=== PATIENT | female | born 1980 | race Caucasian/White ===

== ENCOUNTER 2020-12-19 15:43 | Emergency (ER) | payer BC ==
[~2020-12-19] VITALS: Ht 160 cm; Wt 85.9 kg
[2020-12-19 15:45] VITALS: BP 115/75
[2020-12-19] MEDS ORDERED: VALA100031 PO (15:50)
[2020-12-19] MEDS ORDERED: PENI500T2 PO (15:50)
== END 2020-12-19 16:32 | disposition home or self-care (01) ==
LOC: ER 15:44
DX: K02.9 Dental caries, unspecified (principal); B00.89 Other herpesviral infection; K08.89 Other specified disorders of teeth and supporting structures; Z88.5 Allergy status to narcotic agent; Z79.2 Long term (current) use of antibiotics
CPT/HCPCS: 99283

== ENCOUNTER 2022-07-31 11:47 | Emergency (ER) | payer BC, MEDICAID ==
[~2022-07-31] VITALS: Ht 157.5 cm; Wt 92.3 kg
[~2022-07-31 11:47] MED LIST: VALA100031 PO
[2022-07-31 12:21] VITALS: BP 123/83
--- NOTE | 2022-07-31 14:11 | NUR ---
ADMINISTRATION SPECIALIST AT BEDSIDE.
== END 2022-07-31 14:49 | disposition home or self-care (01) ==
LOC: ER 11:48
DX: R22.42 Localized swelling, mass and lump, left lower limb (principal); Z88.5 Allergy status to narcotic agent; Z79.899 Other long term (current) drug therapy
CPT/HCPCS: 93971; 99284